=== PATIENT | female | born 2000 | race Caucasian/White ===

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

== ENCOUNTER 2018-01-06 01:08 | Inpatient (IN) | payer OTHER ==
[~2018-01-06] VITALS: Ht 162.6 cm; Wt 72.6 kg
[2018-01-06 01:08] VITALS: BP 170/113
[~2018-01-06 01:08] MED LIST changes: -TRAZ-286 PO; +TRAZ-343 PO
--- NOTE | 2018-01-06 01:08 | NUR ---
PT BIBA BLS TO ER BED 10
--- NOTE | 2018-01-06 01:10 | NUR ---
17/F BIBDerrek FROM [place] [facility] FOR ALOC TODAY. PER CAREGIVER PT HAS BEEN GRUNTING DIFFERENTLY AND APPEARED SOB. ALSO REPORTED RUNNY NOSE AND FEVER,DENIED COUGH. FEBRILE ON ARRIVAL TODAY. ALL LUNG SOUDNS CBTA, 20RR EVEN AND SLIGHLY LABORED. PT CONTRACTED. PMH: AUTISM, SEIZURES, INTELLECTUAL DISABILITY, CEREBRAL PALSY
[2018-01-06] MEDS ORDERED: ACETAMINOPHEN 325 MG SUPP RC ONE (01:22)
[2018-01-06] MEDS ORDERED: ACETAMINOPHEN 650 MG SUPP RC ONE ×2 (01:30→03:15)
--- NOTE | 2018-01-06 01:32 | NUR ---
UNABLE TO OBTAIN EKG AT THIS TIME, MD AND RN NOTIFIED. WILL ATTEMPT LATER.
[2018-01-06] MEDS ORDERED: NACL 0.9% 1,000 ML IV SCH (01:33)
[2018-01-06] MEDS ORDERED: ACET-1083 PO (01:35)
[2018-01-06] MEDS ORDERED: LORazepam 2 MG/ML VIAL IVP ONE (01:35)
--- NOTE | 2018-01-06 01:42 | NUR ---
XRAY AND RT AT BEDSIDE.
--- NOTE | 2018-01-06 02:20 | NUR ---
RT at bedside
--- NOTE | 2018-01-06 02:25 | NUR ---
lab at bedside
[2018-01-06 02:38] LABS: BASOPHILS % (AUTO) 0.2 % (0.0-2.0); EOSINOPHILS % (AUTO) 0.1 % (0.0-4.0); HEMATOCRIT 36.9 % (36-48); HEMOGLOBIN 12.1 g/dL (12.0-16.0); LYMPHOCYTES % (AUTO) 11.8 % (20.5-51.1); MEAN CORPUSCULAR HEMOGLOBIN 29 pg (27-31); MEAN CORPUSCULAR HGB CONC 33 g/dL (33-37); MEAN CORPUSCULAR VOLUME 87.7 fL (80-94); MONOCYTES # (AUTO) 0.7 K/uL (0.8-1.0); MONOCYTES % (AUTO) 8.6 % (1.7-9.3); NEUTROPHILS # (AUTO) 6.7 K/uL (1.8-7.7); NEUTROPHILS % (AUTO) 79.3 % (42.2-75.2); PLATELET COUNT (AUTO) 155 K/uL (140-450); RED BLOOD CELL COUNT(AUTO) 4.21 MIL/uL (4.20-5.40); RED CELL DISTRIBUTION WIDTH 15.2 % (11.6-13.7); WHITE BLOOD COUNT (AUTO) 8.5 K/uL (4.5-11.0)
[2018-01-06 02:50] LABS: ANION GAP 9.9 (8-16); CARBON DIOXIDE 29.1 mmol/L (21-32); CREATININE 0.8 mg/dL (0.6-1.3)
--- NOTE | 2018-01-06 02:53 | NUR ---
AFTER MULTIPLE ATTEMPTS, ABG DRAW WAS UNSUCCESSFUL. CEASED ATTEMPTS PER DR. SORENSEN.
[2018-01-06 03:03] LABS: PROTHROMBIN TIME 10.3 secs (10.8-13.4); TOTAL BILIRUBIN 0.2 mg/dL (0.0-1.0)
[2018-01-06 03:14] LABS: APPEARANCE,URINE CLEAR (CLEAR); BILIRUBIN,URINE NEGATIVE (NEGATIVE); BLOOD, URINE NEGATIVE (NEGATIVE); COLOR,URINE YELLOW (YELLOW); LEUKOCYTE ESTERASE ,URINE NEGATIVE (NEGATIVE); NITRITE, URINE NEGATIVE (NEGATIVE); UGLUCOSE NEGATIVE (NEGATIVE)
[2018-01-06] MEDS ORDERED: KETOROLAC 30 MG/ML VIAL IVP ONE (03:15)
[2018-01-06 03:19] LABS: RBC,URINE 0-5 (RARE) /HPF (0-5); WBC,URINE 0-5 (RARE) /HPF (0-5)
--- NOTE | 2018-01-06 03:50 | NUR ---
pt asleep. on bedside monitor, continues to be tachy at 120s, no ectopy. will contine to monitor
[2018-01-06] MEDS ORDERED: cefTRIAXone 1,000 MG VIAL ONE (04:13)
[2018-01-06] MEDS ORDERED: NACL 0.9% 1,000 ML IV ONE (04:20)
--- NOTE | 2018-01-06 05:16 | NUR ---
aPatient will be admitted to care of [facility]. Admited to tele. Will go to room 124A. Belongings list completed. Report to MICHELLE ZHANG.
[2018-01-06 05:20] VITALS: BP 98/53
--- NOTE | 2018-01-06 05:20 | NUR ---
PT ARRIVED ON UNIT VIA GURNEY. PT TRANSFERRED FROM [place] INTO BED WITH TOTAL ASSISTANCE. PT IN STABLE CONDITION. PT IS NONVERBAL. PT ON RA WITH RESPIRATIONS EVEN AND UNLABORED. IV ACCESS IN L WRIST 20G WITH FLUID BOLUS ALMOST COMPLETED. PT SKIN IS INTACT. IBRAHIM CATHETER IN PLACE DRAINING CLEAR YELLOW URINE, 1600ML EMPTIED UPON ARRIVAL TO UNIT. MRSA SWAB COLLECTED. SEIZURE PRECAUTIONS IN PLACE. FALL RISK PROTOCOL IN PLACE. ALLERGY WRISTBAND APPLIED. BED IS LOCKED, LOW POSITION WITH SIDE RAILS UP X2. CALL LIGHT WITHIN REACH. WILL CONTINUE TO MONITOR.
--- NOTE | 2018-01-06 06:29 | NUR ---
PATIENT HAS BEEN SCREENED AND CATEGORIZED HIGH NUTRITION RISK. PATIENT WILL BE SEEN WITHIN 1-2 DAYS OF ADMISSION. 01/07/18-01/08/18 ELIS BARNES MS, RDN
--- NOTE | 2018-01-06 06:58 | NUR ---
LAB AT BEDSIDE DRAWING LABS.
--- NOTE | 2018-01-06 07:29 | NUR ---
ENDORSED PT TO DAY SHIFT NURSE FOR CONTINUITY OF CARE. PT IN STABLE CONDITION.
--- NOTE | 2018-01-06 07:30 | NUR ---
RECEIVED BEDSIDE REPORT FROM SOLDERING MACHINE OPERATOR NURSE. PATIENT IS NONVERBAL. NO SIGNS OF DISTRESS ON RA. SKIN IS INTACT. TELE MONITOR IN PLACE. PATIENT HAS CEREBRAL PALSY. FALL RISK PROTOCOL IN PLACE. SEIZURE PRECAUTIONS. PATIENT IS NOT AMBULATORY. INCONTINENT. IBRAHIM CATH PRESENT. BED ALARM IS ON. IV ON L HAND 20G SALINE LOCK. CLEAN, DRY AND INTACT. BED IN LOW POSITION. CALL LIGHT WITHIN REACH. WILL CONTINUE TO MONITOR THE PATIENT
[2018-01-06] MEDS ORDERED: ACETAMINOPHEN 325 MG TAB PO PRN (07:55)
[2018-01-06] MEDS ORDERED: PROMETHAZINE 6.25 MG/5 ML ORASYR PO PRN (07:55)
[2018-01-06 08:00] VITALS: BP 101/62
[2018-01-06] MEDS ORDERED: ALBUTEROL 0.083% 2.5 MG/3 ML NEBU IH PRN (08:00)
[2018-01-06] MEDS ORDERED: ONDANSETRON 4 MG/2 ML VIAL IVP PRN (08:00)
[2018-01-06] MEDS ORDERED: HYDROcodone/APAP 5/325 MG 1 TAB TAB PO PRN (08:00)
[2018-01-06] MEDS ORDERED: DIVALPROEX 500 MG TABEC PO SCH (09:00)
[2018-01-06] MEDS ORDERED: LORazepam 1 MG TAB PO SCH (09:00)
[2018-01-06] MEDS: DEXT 5% / NACL 0.45% 1,000 ML IV SCH ×2 (09:14→20:03)
[2018-01-06] MEDS: DOCUSATE SODIUM 100 MG GELCAP PO SCH ×2 (09:27→21:00)
[2018-01-06] MEDS: OLANZapine 2.5 MG TAB PO SCH ×2 (09:27→21:01)
[2018-01-06] MEDS ORDERED: ENOXAPARIN 30 MG/0.3 ML SYR SUBQ SCH (09:30)
--- NOTE | 2018-01-06 09:30 | NUR ---
ADMINISTERED MEDS. PATIENT TOLERATED WELL. NO SIGNS OF DISTRESS ON RA. WILL CONTINUE TO MONITOR THE PATIENT
--- NOTE | 2018-01-06 11:53 | NUR ---
PATIENT IS SLEEPING. NO SIGNS OF DISTRESS. WILL CONTINUE TO MONITOR THE PATIENT
[2018-01-06 12:00] VITALS: BP_SYST 110; BP_SYST 98; BP_DIAS 62
[2018-01-06] MEDS: LORazepam 0.5 MG TAB PO SCH ×2 (12:55→16:40)
[2018-01-06] MEDS: DIVALPROEX 250 MG TABEC PO SCH ×2 (12:55→16:40)
--- NOTE | 2018-01-06 13:02 | NUR ---
ADMINISTERED MEDS. PATIENT TOLERATED WELL. WILL CONTINUE TO MONITOR THE PATIENT
--- NOTE | 2018-01-06 13:48 | NUR ---
PATIENT IS SLEEPING. WILL CONTINUE TO MONITOR THE PATIENT
--- NOTE | 2018-01-06 15:45 | NUR ---
PATIENT IS SLEEPING. BED IN LOW POSITION. CALL LIGHT WITHIN REACH. WILL CONTINUE TO MONITOR THE PATIENT
[2018-01-06 16:00] VITALS: BP 105/51
--- NOTE | 2018-01-06 16:44 | NUR ---
ADMINISTERED MEDS. PATIENT TOLERATED WELL. NO SIGNS OF DISTRESS ON RA. WILL CONTINUE TO MONITOR THE PATIENT
--- NOTE | 2018-01-06 18:00 | NUR ---
PATIENT IS SLEEPING. WILL CONTINUE TO MONITOR THE PATIENT
--- NOTE | 2018-01-06 19:20 | NUR ---
GAVE BEDSIDE REPORT TO MARKETING RESEARCH INTERN NURSE. PATIENT ENDORSED IN STABLE CONDITION
--- NOTE | 2018-01-06 19:21 | NUR ---
RECEIVED REPORT FROM DAY SHIFT RN FOR CONTINUITY OF CARE. PT IS NONVERBAL WITH HISTORY OF CEREBRAL PALSY, AUTISM, AND INTELLECTUAL DISABILITY. ON ROOM AIR. PT IS BEDBOUND, AND SKIN IS PINK/WARM/DRY AND INTACT. PT IS UNABLE TO MAKE NEEDS KNOWN, UNABLE TO FOLLOW COMMANDS. LUNGS SOUNDS CLEAR, HR EVEN AND REGULAR. PT HAS 20G IV TO LEFT WRIST, ASYMPTOMATIC AND INTACT. PT STATES PAIN OF 0/10 AT THIS TIME, VITAL SIGNS STABLE. PT POSITIONED FOR COMFORT. BED RAILS UP X2, BED IN LOWEST POSITION. CALL LIGHT WITHIN REACH. WILL CONTINUE TO MONITOR.
[2018-01-06 20:00] VITALS: BP 117/68
[2018-01-06] MEDS ORDERED: MAGNESIUM HYDROXIDE 2400 MG/30 ML UDC PO SCH (21:00)
[2018-01-06] MEDS ORDERED: ZOLPIDEM 10 MG TAB PO SCH (21:00)
[2018-01-06] MEDS ORDERED: diphenhydrAMINE 50 MG CAP PO SCH (21:00)
[2018-01-06] MEDS ORDERED: traZODone 50 MG TAB PO SCH (21:00)
[2018-01-06] MEDS ORDERED: POLYETHYLENE GLYCOL 17 GM/PKT PO SCH (21:00)
[2018-01-06] MEDS ORDERED: CITALOPRAM 20 MG TAB PO SCH (21:00)
[2018-01-06] MEDS ORDERED: QUEtiapine FUMARATE 25 MG TAB PO SCH (21:00)
--- NOTE | 2018-01-06 21:05 | NUR ---
ADMINISTERED SCHEDULED MEDICATIONS, PT TOLERATED WELL.
[2018-01-07] VITALS: BP 109/55
--- NOTE | 2018-01-07 | NUR ---
FLACC 0. VITAL SIGNS STABLE. BED RAILS UP X2, BED IN LOWEST POSITION. CALL LIGHT WITHIN REACH. WILL CONTINUE TO MONITOR.
[2018-01-07 04:00] VITALS: BP 99/69
--- NOTE | 2018-01-07 04:00 | NUR ---
FLACC 0. VITAL SIGNS STABLE. BED RAILS UP X2, BED IN LOWEST POSITION. CALL LIGHT WITHIN REACH. WILL CONTINUE TO MONITOR.
[2018-01-07] MEDS: LORazepam 2 MG/ML VIAL IVP PRN ×2 (05:37→10:30)
--- NOTE | 2018-01-07 05:45 | NUR ---
PT SEVERELY AGITATED. PT KICKING, SCRATCHING, AND BITING EVERYONE THAT GETS CLOSE. PAGED DR THURMAN.
[2018-01-07] MEDS ORDERED: HALOPERIDOL IM 5 MG/ML VIAL IVP PRN (06:25)
--- NOTE | 2018-01-07 06:25 | NUR ---
SPOKE TO DR THURMAN REGARDING COMBATIVE PT. DR THURMAN ORDERED 1MG HALDOL IVP PRN Q6H. REPEATED ORDER TO DR THURMAN AND HE CONFIRMED.
[2018-01-07] MEDS ORDERED: HALOPERIDOL IM 5 MG/ML VIAL ONE (06:33)
--- NOTE | 2018-01-07 07:30 | NUR ---
RECEIVED PT REPORT FROM BEHAVIORAL HEALTH CARE MANAGER NURSE AT BEDSIDE. PT IS ASLEEP AT THIS TIME. NO S/S OF DISTRESS NOTED. L WRIST IV SITE NOTED, 20 GAUGE, INFUSING D5 1/2NS AT 80 ML/HR. PT IS ON A PUREED DIET. PT IS ON ROOM AIR. SKIN INTACT. BED IN LOW POSITION, CALL LIGHT WITHIN REACH. SEIZURE PRECAUTIONS IN PLACE. WILL CONTINUE TO MONITOR.
--- NOTE | 2018-01-07 07:38 | NUR ---
ENDORSED PT TO DAY SHIFT RN FOR CONTINUITY OF CARE. PT IN STABLE CONDITION.
[2018-01-07 08:00] VITALS: BP 119/80
[2018-01-07] MEDS: DEXT 5% / NACL 0.45% 1,000 ML IV SCH (08:57)
[2018-01-07] MEDS: LORazepam 0.5 MG TAB PO SCH ×3 (09:00→17:31)
[2018-01-07] MEDS: DOCUSATE SODIUM 100 MG GELCAP PO SCH (09:00)
[2018-01-07] MEDS: OLANZapine 2.5 MG TAB PO SCH (09:00)
[2018-01-07] MEDS ORDERED: ENOXAPARIN 30 MG/0.3 ML SYR SUBQ SCH (09:00)
--- NOTE | 2018-01-07 10:00 | NUR ---
UNABLE TO ADMINISTER SCHEDULED MORNING ORAL MEDS DUE TO INCREASED AGITATION AND ANXIETY.
--- NOTE | 2018-01-07 10:42 | NUR ---
PRN IV ATIVAN GIVEN FOR INCREASED AGITATION AND ANXIETY. WILL CONTINUE TO MONITOR.
[2018-01-07 12:00] VITALS: BP 117/86
[2018-01-07] MEDS: DIVALPROEX 250 MG TABEC PO SCH ×2 (12:00→17:31)
[2018-01-07] MEDS ORDERED: CEPH250C16 PO (14:31)
--- NOTE | 2018-01-07 15:50 | NUR ---
PT BEING WHEELED AROUND THE UNIT BY THE WATER TREATMENT TECHNICIAN AT THIS TIME. TOLERATING WELL. NO S/S OF ACUTE DISTRESS. CONTINUING TO MONITOR.
[2018-01-07 16:00] VITALS: BP 123/86
--- NOTE | 2018-01-07 17:40 | NUR ---
KEEP CALLING THE BOARD AND CARE NOBODY ANSWERING LEFT MESSAGE, SEARCH THE NUMBER AND ITS . SHE SAID SHE WILL CALL BACK IN 15 MINUTES. WILL CONTINUE TO MONITOR.
--- NOTE | 2018-01-07 18:30 | NUR ---
PT HAS DISCHARGED. PT IS BEING PICKED UP BY HER BOARD AND CARE CAREGIVERS. DISCHARGE DOCUMENTS AND PRESCRIPTION GIVEN, SIGNATURES OBTAINED FROM CAREGIVER. WRIST BAND REMOVED, IV DISCONTINUED. IBRAHIM CATHETER REMOVED. PT LEFT WITH ALL HER BELONGINGS. PT LEFT IN HER WHEELCHAIR, IN STABLE CONDITION.
--- NOTE | 2018-01-08 13:15 | NUR ---
CALLED [facility] AND SPOKE WITH ANDREWS. HE GAVE ME THE CORRECT NUMBER TO THEIR FACILITY, . THE PHONE FOR AMBER IS [phone]. I INFORMED SIRIA IN ADMITTING. I SPOKE WITH ANDREWS AT [facility]. HE SAID THAT THEIR PHYSICIAN DR. TADEO WILL SEE THE PATIENT AT THEIR FACILITY IN 2-3DAYS FOR FOLLOW UP.
== END 2018-01-07 18:30 | DRG 720 ==
LOC: MED 01:08 → MTU 04:59
PROVIDERS: ADMIT Hospitalist; ATTEND Hospitalist
DX: A41.9 Sepsis, unspecified organism (principal); E44.0 Moderate protein-calorie malnutrition; F79 Unspecified intellectual disabilities; R41.82 Altered mental status, unspecified; G80.9 Cerebral palsy, unspecified; G40.909 Epilepsy, unspecified, not intractable, without status epilepticus; F84.0 Autistic disorder; Z91.011 Allergy to milk products; Z91.010 Allergy to peanuts; Z79.899 Other long term (current) drug therapy
CPT/HCPCS: 36415; 71045; 80053; 81001; 83605; 83690; 84484; 85025; 85610; 85730; 87040; 87081; 87086; 87804; 93005; 96361; 96365; 96375; 99291; J0696; J1630; J1650; J1885; J2060; J7060; Q0092; Q0163